=== PATIENT | male | born 1995 | race Caucasian/White ===

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

== ENCOUNTER 2022-02-16 15:38 | Emergency (ER) | payer OTHER ==
[2022-02-16] MEDS ORDERED: Ondansetron 4 MG/2 ML SDV IVPUSH ONE (16:31)
[2022-02-16] MEDS ORDERED: Sodium Chloride 0.9% 1,000 ML IV ONE (16:31)
[2022-02-16 17:02] LABS: CARBON DIOXIDE,CO2 22.4 mmol/L (21.0-32.0); POTASSIUM,K 4.1 mmol/L (3.5-5.1)
[2022-02-16] MEDS ORDERED: Iopamidol 755 MG/ML 500 ML Multipack Bottle IVPUSH STA (18:39)
[2022-02-16 19:49] VITALS: BP 127/91; PULSE 110
[2022-02-16 21:05] LABS: C. TRACHOMATIS BY PCR NOT DETECTED; N. GONORRHOEAE BY PCR NOT DETECTED
== END 2022-02-16 19:45 | disposition home or self-care (01) ==
LOC: MW.ED 15:38
DX: R11.2 Nausea with vomiting, unspecified (principal); N39.0 Urinary tract infection, site not specified; Z79.899 Other long term (current) drug therapy; Z20.822 Contact with and (suspected) exposure to COVID-19
CPT/HCPCS: 36415; 71045; 74177; 80053; 80305; 81001; 83690; 85025; 87491; 87591; 87635; 93005; 96361; 96374; 99284; J2405; J7030; Q9967; U0002

== ENCOUNTER 2023-01-03 09:59 | Emergency (ER) | payer OTHER ==
[2023-01-03] MEDS ORDERED: Ketorolac 30 MG/ML SDV IVPUSH ONE (10:32)
[2023-01-03] MEDS ORDERED: Dexamethasone 10 MG/ML SDV IVPUSH ONE (10:32)
[2023-01-03 11:39] LABS: BASOPHILS PERCENT AUTO 0.9 % (0.0-1.5); EOSINOPHILS ABSOLUTE AUTO 0.2 K/uL (0.0-0.7); EOSINOPHILS PERCENT AUTO 3.2 % (0.0-7.0); HEMATOCRIT 46.2 % (38.0-50.0); HEMOGLOBIN 16.1 g/dL (13.0-17.0); LYMPHOCYTES ABSOLUTE AUTO 2.2 K/uL (0.6-2.4); LYMPHOCYTES PERCENT AUTO 47.5 % (16.0-40.0); MEAN CORPUSCULAR HEMOGLOBIN 33.5 pg (27.0-32.0); MEAN CORPUSCULAR HGB CONC 34.8 g/dL (31.0-37.0); MONOCYTES ABSOLUTE AUTO 0.4 K/uL (0.0-0.8); MONOCYTES PERCENT AUTO 9.3 % (0.0-15.0); NEUTROPHILS ABSOLUTE AUTO 1.8 K/uL (1.4-5.7); NEUTROPHILS PERCENT AUTO 39.1 % (48.0-80.0); NRBC ABSOLUTE 0 K/uL; PLATELET COUNT,PLT 275 K/uL (150-400); RED BLOOD CELL COUNT 4.81 M/uL (4.50-5.90); WHITE BLOOD CELL COUNT,WBC 4.63 K/uL (4.0-11.0)
[2023-01-03 12:05] LABS: A/G RATIO 1.2 (0.9-1.6); ALBUMIN 4.2 g/dL (3.4-5.0); BILIRUBIN TOTAL 0.3 mg/dL (0.2-1.0); CALCIUM 8.3 mg/dL (8.5-10.1); CREATININE 0.8 mg/dL (0.8-1.3); EST CRCL DRUG DOSING (CG) 136.56 mL/min; POTASSIUM,K 3.5 mmol/L (3.5-5.1); PROTEIN TOTAL,TP 7.6 g/dL (6.4-8.2)
[2023-01-03 12:45] VITALS: BP 138/102; PULSE 99
[2023-01-03] MEDS ORDERED: Iopamidol 755 MG/ML 500 ML Multipack Bottle IVPUSH STA (16:16)
== END 2023-01-03 12:44 | disposition home or self-care (01) ==
LOC: MW.ED 09:59
DX: M25.552 Pain in left hip (principal); M25.551 Pain in right hip; F17.210 Nicotine dependence, cigarettes, uncomplicated
CPT/HCPCS: 36415; 74177; 80053; 83690; 85025; 96374; 96375; 99284; J1100; J1885; Q9967

== ENCOUNTER 2023-07-23 15:46 | Emergency (ER) | payer OTHER ==
[2023-07-23] MEDS: Lactated Ringers 1,000 ML IV ONE (16:22)
[2023-07-23] MEDS: Sodium Chloride 0.9% 2.5 ML Syringe FLUSH PRN (16:22)
[2023-07-23] MEDS: Sodium Chloride 0.9% 10 ML Syringe FLUSH PRN (16:23)
[2023-07-23] MEDS: Albuterol/Ipratropium 3.0-0.5 MG/3 ML Neb Soln NEB ONE (16:23)
[2023-07-23 16:27] LABS: BASOPHILS ABSOLUTE AUTO 0.03 K/uL (0.00-0.20); BASOPHILS PERCENT AUTO 0.5 % (0.0-1.0); EOSINOPHILS ABSOLUTE AUTO 0.08 K/uL (0.00-0.45); EOSINOPHILS PERCENT AUTO 1.2 % (0.0-6.0); HEMATOCRIT 41.7 % (42.0-52.0); HEMOGLOBIN 15.3 g/dL (14.0-18.0); IMMATURE GRAN ABSOLUTE AUTO 0.03 K/uL (0.00-0.05); IMMATURE GRAN PERCENT AUTO 0.5 % (0.0-0.4); LYMPHOCYTES ABSOLUTE AUTO 1.09 K/uL (1.00-4.80); LYMPHOCYTES PERCENT AUTO 16.5 % (24.0-44.0); MEAN CORPUSCULAR HEMOGLOBIN 35.3 pg (28.0-32.0); MEAN CORPUSCULAR HGB CONC 36.7 g/dL (32.0-36.0); MEAN CORPUSCULAR VOLUME 96.1 fL (83.0-99.0); MONOCYTES ABSOLUTE AUTO 0.43 K/uL (0.00-0.80); MONOCYTES PERCENT AUTO 6.5 % (0.0-8.0); NEUTROPHILS ABSOLUTE AUTO 4.96 K/uL (1.80-7.70); NEUTROPHILS PERCENT AUTO 74.8 % (41.0-71.0); PLATELET COUNT,PLT 337 K/uL (150-400); RED BLOOD CELL COUNT 4.34 M/uL (4.52-5.90); WHITE BLOOD CELL COUNT,WBC 6.62 K/uL (3.9-11.3)
[2023-07-23] MEDS: LORazepam 2 MG/ML SDV IVPUSH ONE (16:36)
[2023-07-23 17:01] LABS: A/G RATIO 1.5 (0.9-1.6); ALANINE AMINOTRANSFERASE,ALT 128 IU/L (14-63); ALBUMIN 4.6 g/dL (3.4-5.0); ALKALINE PHOSPHATASE 80 U/L (46-116); ASPARTATE AMNIOTRANSFERASE,AST 82 IU/L (15-37); BILIRUBIN TOTAL 1.3 mg/dL (0.2-1.0); BLOOD UREA NITROGEN,BUN 6 mg/dL (7.0-18.0); CALCIUM 9.4 mg/dL (8.5-10.1); CHLORIDE,CL 101 mmol/L (98-107); EST CRCL DRUG DOSING (CG) 109.25 mL/min; ESTIMATED GFR 107 mL/min (>60); GLUCOSE RANDOM 138 mg/dL (74-106); LIPASE 19 U/L (16-77); MAGNESIUM 1.3 mg/dL (1.8-2.4); POTASSIUM,K 4.3 mmol/L (3.5-5.1); PROTEIN TOTAL,TP 7.6 g/dL (6.4-8.2); SODIUM,NA 140 mmol/L (136-148); TSH ULTRASENSITIVE 1.45 uIU/mL (0.36-3.74)
[2023-07-23 17:05] LABS: CORONAVIRUS COVID-19 NAA NEGATIVE (NEGATIVE); INFLUENZA A NAA NEGATIVE (NEGATIVE); INFLUENZA B NAA NEGATIVE (NEGATIVE); RESPIRATORY SYNCYTIAL VIR NAA NEGATIVE (NEGATIVE)
[2023-07-23 17:26] LABS: ACETAMINOPHEN <2.0 ug/mL; ETHANOL BLOOD MEDICAL 5 mg/dL; SALICYLATE <0.2 mg/dL (0.0-20.0)
[2023-07-23] MEDS: Magnesium Sulfate/Water 2 GM in Premix Bag 1 BAG IV ONE (17:28)
[2023-07-23 19:54] LABS: AMPHETAMINES SCREEN, URINE NEGATIVE (CUTOFF=500); BARBITURATE SCREEN,URINE NEGATIVE (CUTOFF=200); BENZODIAZEPINES SCREEN,URINE PRESUMPTIVE POSITIVE (CUTOFF=150); BUPRENORPHINE SCREEN,URINE NEGATIVE (CUTOFF=10); METHADONE SCREEN, URINE NEGATIVE (CUTOFF=200); METHAMPHETAMINES SCREEN, URINE NEGATIVE (CUTOFF=500); OXYCODONE SCREEN,URINE NEGATIVE (CUT0FF=100); PCP SCREEN,URINE NEGATIVE (CUTOFF=25); THC SCREEN,URINE 20 NG/ML PRESUMPTIVE POSITIVE (CUTOFF=50)
[2023-07-23 20:55] VITALS: BP 140/99; PULSE 99
== END 2023-07-23 20:53 | disposition home or self-care (01) ==
LOC: MW.ED 15:46
DX: F10.239 Alcohol dependence with withdrawal, unspecified (principal)
CPT/HCPCS: 0241U; 36415; 71046; 76705; 80053; 80143; 80179; 80305; 80307; 82947; 83690; 83735; 84443; 84484; 85025; 85379; 93005; 96361; 96365; 96375; 99284; J2060; J3360; J3475; J3490; J7120; J7620-GY